=== PATIENT | male | born 1960 | race Hispanic/Latino ===

== ENCOUNTER 2023-05-03 15:52 | Outpatient (CLI) | payer OTHER | END 2023-05-03 15:53 | disposition home or self-care (01) | LOC: CSHRAD 15:52 | PROVIDERS: ATTEND Family Medicine | DX: M79.662 Pain in left lower leg (principal); M17.12 Unilateral primary osteoarthritis, left knee; M79.89 Other specified soft tissue disorders ==

== ENCOUNTER 2024-11-04 09:56 | Emergency (ER) | payer OTHER ==
[2024-11-04 10:52] LABS: #Basophils 0.05 10x3/uL (0.0-0.2); #Eosinophils 0.45 10x3/uL (0.0-0.5); #Monocytes 0.51 10x3/uL (0.0-1.1); #Neutrophils 6.34 10x3/uL (1.5-8.4); %Basophils 0.6 % (0.0-2.0); %Eosinophils 5.0 % (0.0-6.0); %Lymphocytes 18.0 % (18.0-47.0); %Monocytes 5.7 % (0.0-10.0); %Neutrophils 70.1 % (40.0-75.0); Hematocrit 29.1 % (38.8-50.0); Hemoglobin 9.4 g/dL (13.5-17.5); Mean Corpuscular Hemoglobin 30.3 pg (27.0-33.0); Mean Corpuscular Volume 93.9 fL (81.2-95.1); Platelet Count 244 10x3/uL (150-450); Red Blood Cell (RBC) Count 3.10 10x6/uL (4.32-5.72); White Blood Cell (WBC) Count 9.02 10x3/uL (3.5-10.5)
[2024-11-04 11:12] LABS: ALT (SGPT) 18 U/L (Less than 45); AST (SGOT) 22 U/L (11-34); Albumin 3.3 g/dL (3.1-4.5); Alkaline Phosphatase 63 U/L (40-110); Anion Gap 15 mmol/L (10-20); BUN (Urea Nitrogen) 48 mg/dL (8.4-25.7); Bilirubin, Total 0.5 mg/dL (0.3-1.2); Calc. Creatinine Clearance 0 mL/min (70-130); Calcium 8.5 mg/dL (7.8-10.44); Carbon Dioxide 25 mmol/L (23-31); Chloride 107 mmol/L (98-107); Globulin 4.4 g/dL (2.4-3.5); Glucose 118 mg/dL (80-115); Potassium 5.9 mmol/L (3.5-5.1); Sodium 141 mmol/L (136-145)
[2024-11-04 11:35] LABS: Actual Bicarbonate (HCO3v) 26.0 mEq/L (22-28); Analyzer IN Cardio CS ER; Base Excess -0.5 mEq/L (-2 - +2); Calcium, Ionized (venous) 1.12 mmol/L (1.16-1.32); Chloride (VBG) 106 mmol/L (98-106); Critical Notified By: Udy, RRT; Critical Notified Whom: Taylor, RN; Hematocrit-VBG 31 % (42.0-52.0); Hemoglobin (Hb) 10.5 g/dL (12.6-17.4); Potassium (VBG) 5.70 mmol/L (3.70-5.30); Puncture Site Other Site; RapidComm Collect By Taylor, RN; Sodium 141 mmol/L (133-146)
[2024-11-04] MEDS ORDERED: hydrALAZINE 20 MG/ML VIAL ONE (12:41)
[2024-11-04 13:57] LABS: Anion Gap 13 mmol/L (10-20); BUN (Urea Nitrogen) 46 mg/dL (8.4-25.7); Calc. Creatinine Clearance 0 mL/min (70-130); Calcium 8.3 mg/dL (7.8-10.44); Carbon Dioxide 25 mmol/L (23-31); Chloride 109 mmol/L (98-107); Glucose 103 mg/dL (80-115); Potassium 5.4 mmol/L (3.5-5.1); Sodium 142 mmol/L (136-145)
== END 2024-11-04 14:21 | disposition short-term general hospital (02) ==
LOC: CSHERS 09:56
DX: I12.9 Hypertensive chronic kidney disease with stage 1 through stage 4 chronic kidney disease, or unspecified chronic kidney disease (principal); N18.9 Chronic kidney disease, unspecified; E11.22 Type 2 diabetes mellitus with diabetic chronic kidney disease; E87.5 Hyperkalemia; E78.5 Hyperlipidemia, unspecified; Z55.6 Problems related to health literacy; Z79.899 Other long term (current) drug therapy; Z79.82 Long term (current) use of aspirin
CPT/HCPCS: 80048; 80053; 82805; 85025; 93005; J0360; 36415; 96374